=== PATIENT | female | born 1990 | race Caucasian/White ===

== ENCOUNTER 2017-04-10 06:00 | Observation (INO) | payer OTHER ==
[~2017-04-10] VITALS: Ht 160 cm; Wt 76.2 kg
[2017-04-10 07:01] VITALS: Ht 160 cm; Wt 76.2 kg
[2017-04-10 07:03] VITALS: BP 111/71; PULSE 94; RESP 18
[2017-04-10] MEDS ORDERED: LACTATED RINGER'S 1,000 ML IV SCH (07:54)
[2017-04-10] MEDS ORDERED: LACTATED RINGER'S 1,000 ML IV PRN (07:55)
[2017-04-10] MEDS ORDERED: CARBOPROST 250 MCG INJ IM PRN (08:00)
[2017-04-10] MEDS ORDERED: OXYTOCIN 30 UNITS/LR 500 ML IV PRN (08:00)
[2017-04-10] MEDS ORDERED: LIDOCAINE 1% (MPF) 30 ML INJ INJ PRN (08:00)
[2017-04-10] MEDS ORDERED: MISOPROSTOL 200 MCG TAB PR PRN (08:00)
[2017-04-10] MEDS ORDERED: METHYLERGONOVINE 0.2 MG INJ IM PRN (08:00)
--- NOTE | 2017-04-10 08:46 | PN ---
Triage Information Date/Time Apr 10, 2017 at 06:00 Reason for visit: Uterine contractions Weeks of Gestation 39w 1d /Para Objective Vital Signs Date Time Temp Pulse Resp B/P Pulse Ox O2 Delivery O2 Flow Rate FiO2 04/10/17 07:03 97.9 94 18 111/71 Room Air Heart Rate Comments reactive Contractions: 6-10 Minutes Apart Results/Medications Medications Current Medications Lactated Ringer's (Lr) 1,000 ml @ 125 mls/hr Q8H IV ; Start 04/10/17 at 07:54; Status UNV Lidocaine 30 ml 30 ml ONCE PRN INJ EPISIOTOMY/TEARING; Start 04/10/17 at 08:00; Status UNV Lactated Ringer's 1,000 ml @ 2,000 mls/hr Q30M PRN IV PRE-EPIDURAL BOLUS; Start 04/10/17 at 07:55; Status UNV Oxytocin/Lactated Ringer's 500 ml @ 0 mls/hr ONCE PRN IV For Hemorrhage Management; Start 04/10/17 at 08:00; Status UNV Methylergonovine Maleate (Methergine) 0.2 mg ONCE PRN IM VAGINAL BLEEDING; Start 04/10/17 at 08:00; Status UNV Carboprost Tromethamine (Hemabate) 250 mcg ONCE PRN IM VAGINAL BLEEDING; Start 04/10/17 at 08:00; Status UNV Misoprostol (Cytotec) 1,000 mcg ONCE PRN ME VAGINAL BLEEDING; Start 04/10/17 at 08:00; Status UNV Disposition: Discharge Assessment/Plan 27 y/o at 39w 1d not in active labor -discharge home with labor precautions -f/u with OB JEFF MALCOLM Apr 10, 2017 08:46
== END 2017-04-10 08:45 | disposition home or self-care (01) ==
LOC: L-D 06:00 → INTOOBSV 06:00
PROVIDERS: ADMIT Obstetrics & Gynecology; ATTEND Obstetrics & Gynecology
DX: O62.9 Abnormality of forces of labor, unspecified (principal); Z3A.39 39 weeks gestation of pregnancy
CPT/HCPCS: Z7500 ×2; 99217; G0378

== ENCOUNTER 2017-04-20 04:25 | Inpatient (IN) | payer OTHER ==
[~2017-04-20] VITALS: Ht 160 cm; Wt 78.9 kg
[2017-04-20] MEDS ORDERED: PREN1TAB79 PO (05:13)
[2017-04-20] MEDS ORDERED: FOLI0.8C PO (05:13)
[2017-04-20] MEDS ORDERED: FERR325T5 PO (05:13)
[2017-04-20 05:14] VITALS: Ht 160 cm; Wt 78.9 kg
[2017-04-20 05:17] VITALS: BP 120/77; PULSE 94; RESP 20
[2017-04-20] MEDS ORDERED: BUTORPHANOL 2 MG INJ IV PRN (05:30)
[2017-04-20] MEDS ORDERED: CARBOPROST 250 MCG INJ IM PRN ×2 (05:30→22:00)
[2017-04-20] MEDS ORDERED: MISOPROSTOL 200 MCG TAB PR PRN ×2 (05:30→22:00)
[2017-04-20] MEDS ORDERED: IBUPROFEN 600 MG TAB PO PRN (05:30)
[2017-04-20] MEDS ORDERED: OXYTOCIN 30 UNITS/LR 500 ML IV SCH ×3 (05:30→09:15)
[2017-04-20] MEDS ORDERED: OXYTOCIN 30 UNITS/LR 500 ML IV PRN ×2 (05:30→22:00)
[2017-04-20] MEDS ORDERED: LACTATED RINGER'S 1,000 ML IV PRN (05:30)
[2017-04-20] MEDS ORDERED: LIDOCAINE 1% (MPF) 30 ML INJ INJ PRN (05:30)
[2017-04-20] MEDS ORDERED: METHYLERGONOVINE 0.2 MG INJ IM PRN ×2 (05:30→22:00)
[2017-04-20] MEDS: LACTATED RINGER'S 1,000 ML IV SCH ×3 (05:33→19:34)
[2017-04-20 06:32] LABS: BASOPHILS % 0.5 % (0.0-2.0); EOSINOPHILS # 0.1 10^3/ul (0.0-0.5); EOSINOPHILS % 0.9 % (0.0-7.0); LYMPHOCYTES # 1.1 10^3/ul (0.8-2.9); LYMPHOCYTES % 13.3 % (15.0-51.0); MEAN CORPUSCULAR HEMOGLOBIN 28.4 pg (29.0-33.0); MEAN CORPUSCULAR HGB CONC 32.4 g/dl (32.0-37.0); MEAN CORPUSCULAR VOLUME 87.7 fl (82.0-101.0); MEAN PLATELET VOLUME 12.6 fl (7.4-10.4); MONOCYTE # 0.6 10^3/ul (0.3-0.9); MONOCYTES % 7.4 % (0.0-11.0); NEUTROPHIL # 6.2 10^3/ul (1.6-7.5); NEUTROPHILS % 77.3 % (39.0-77.0); PLATELET COUNT 144 10^3/UL (140-415); RED BLOOD COUNT 4.22 10^6/ul (4.20-5.40); RED CELL DISTRIBUTION WIDTH 13.5 % (11.5-14.5)
[2017-04-20 07:01] LABS: INR 0.95; PARTIAL THROMBOPLASTIN TIME 24.7 Sec (25.0-35.0); PROTIME 12.7 Sec (12.2-14.2)
--- NOTE | 2017-04-20 07:30 | TRIAGE ---
OB Triage Datetime Report Generated by CPN: 04/20/2017 07:29 Datetime: 04/20/2017 07:28 Assessment Type: Ongoing Assessment Maternal Assessment Level of Consciousness: Fully Conscious DTR's/Clonus: DTRs 2+; No Clonus Headache: Denies Blurred Vision: No Respiratory Effort: Unlabored; Regular Rhythm; Equal Expansion Breath Sounds, Left: Clear and Equal Breath Sounds, Right: Clear and Equal Nausea/Vomiting: Denies RUQ Epigastric Pain: Denies Lower Extremities Edema: Bilateral Lower Extremities Degree: 1+ Upper Extremities Edema: None Degree: None Facial Edema: None Fall Risk Assessment History of Falling: (0) No Secondary Diagnosis: (0) No Ambulatory Aid: (0) Bedrest/Nurse Assist IV Therapy: (0) No Gait: (0) Normal/Bedrest/Immobile Mental Status: (0) Oriented to Own Ability Fall Score: 0 Fall Risk Score Definition: No Risk: No action required Datetime: 04/20/2017 07:00 Labor Evaluation Frequency: 3-7 Monitor Mode: External Duration (sec)2399: 60-100 Quality: Moderate Pattern: Normal: <= 5 Contractions in 10 Minutes Resting Tone [place]: Relaxed Heart Rate FHR Baseline Rate: 135 Monitor Mode: External US Variability: Moderate 6-25 bpm Accelerations: 15X15 Decelerations: None Category: Category I Datetime: 04/20/2017 06:30 Labor Evaluation Frequency: 3-6 Monitor Mode: External Duration (sec)2399: 50-90 Quality: Moderate Pattern: Normal: <= 5 Contractions in 10 Minutes Resting Tone [place]: Relaxed Heart Rate FHR Baseline Rate: 135 Monitor Mode: External US Variability: Moderate 6-25 bpm Accelerations: 15X15 Decelerations: None Category: Category I Datetime: 04/20/2017 05:43 Assessment Type: Admission Assessment Vaginal Bleeding: Normal Show Maternal Assessment Level of Consciousness: Fully Conscious DTR's/Clonus: DTRs 2+ Headache: Denies Blurred Vision: No Respiratory Effort: Unlabored Breath Sounds, Left: Clear and Equal Breath Sounds, Right: Clear and Equal Nausea/Vomiting: Denies RUQ Epigastric Pain: Denies Lower Extremities Edema: None Degree: None Upper Extremities Edema: None Fall Risk Assessment History of Falling: (0) No Secondary Diagnosis: (0) No Ambulatory Aid: (0) Bedrest/Nurse Assist IV Therapy: (0) No Gait: (0) Normal/Bedrest/Immobile Mental Status: (0) Oriented to Own Ability Fall Score: 0 Fall Risk Score Definition: No Risk: No action required Labor Evaluation Frequency: 4-5 Duration (sec)2399: 50-90 Quality: Moderate Pattern: Normal: <= 5 Contractions in 10 Minutes Resting Tone [place]: Relaxed Heart Rate FHR Baseline Rate: 140 Variability: Moderate 6-25 bpm Accelerations: 15X15 Decelerations: None Category: Category I Pain Presence: None/Denies Pain Type: N/A Membrane Status: Intact Datetime: 04/20/2017 05:42 Time of Arrival: 04/20/2017 05:30 EGA: 40.4 Arrived By: Ambulatory Chief Complaint: UCs q5-7mins Movement: Present Contractions: Regular Time Contractions Began: 04/20/2017 01:00 Contractions: q5-7mins Rupture of Membranes: Denies Vaginal Bleeding: None Vaginal Discharge: Denies Abdominal Trauma: Not Applicable Patient Complaints: Contractions; Cramping; Back Pain Additional Patient Complaints: Pt was admitted 04/10 for IOL for hx rapid delivery. Pt went home du e to no cervical change. Time Provider Notified: 04/20/2017 05:02 Provider Notified: Initial Plan: EFM x2, VE Datetime: 04/20/2017 05:17 Stage of : OB Triage Labor Evaluation Frequency: 2-6 Monitor Mode: External Duration (sec)2399: 60-100 Quality: Moderate Pattern: Normal: <= 5 Contractions in 10 Minutes Resting Tone [place]: Relaxed Heart Rate FHR Baseline Rate: 145 Monitor Mode: External US Variability: Moderate 6-25 bpm Accelerations: 15X15 Decelerations: None Category: Category I Datetime: 04/20/2017 05:02 Stage of : OB Triage Datetime: 04/20/2017 04:59 Stage of : OB Triage Datetime: 04/20/2017 04:57 Vaginal Exam Dilatation (cms): 3.0 Effacement (%): 60 Station: -3 Exam By: LUPE Marmolejo Vaginal Bleeding: None Cervix, Consistency: Moderate Cervix, Position: Posterior Datetime: 04/20/2017 04:36 Stage of : OB Triage Assessment Type: Triage Maternal Assessment Level of Consciousness: Fully Conscious DTR's/Clonus: DTRs 2+; No Clonus Headache: Denies Blurred Vision: No Respiratory Effort: Unlabored; Regular Rhythm; Equal Expansion Breath Sounds, Left: Clear and Equal Breath Sounds, Right: Clear and Equal Nausea/Vomiting: Denies RUQ Epigastric Pain: Denies Lower Extremities Edema: None Degree: None Upper Extremities Edema: None Degree: None Facial Edema: None Temperature Route: Oral Fall Risk Assessment History of Falling: (0) No Secondary Diagnosis: (0) No Ambulatory Aid: (0) Bedrest/Nurse Assist IV Therapy: (0) No Gait: (0) Normal/Bedrest/Immobile Mental Status: (0) Oriented to Own Ability Fall Score: 0 Fall Risk Score Definition: No Risk: No action required Pain Assessment Pain Scale: 2 Pain Presence: Intermittent Pain Type: Cramping; Contraction Pain Location: Abdomen; Back Pain Relief Measures: Comfort Measures Datetime: 04/10/2017 08:02 Labor Evaluation Frequency: 3-5 Duration (sec)2399: 60-100 Heart Rate FHR Baseline Rate: 145 Monitor Mode: External US FHR Baseline Changes: No Baseline Change Variability: Moderate 6-25 bpm Accelerations: 15X15 Decelerations: None Category: Category I Pain Presence: None/Denies Vaginal Exam Dilatation (cms): 0.5 Effacement (%): 50 Station: -3 Datetime: 04/10/2017 07:44 Assessment Type: Ongoing Assessment Maternal Assessment Level of Consciousness: Fully Conscious DTR's/Clonus: DTRs 2+; No Clonus Headache: Denies Blurred Vision: No Respiratory Effort: Unlabored; Regular Rhythm; Equal Expansion Breath Sounds, Left: Clear and Equal Breath Sounds, Right: Clear and Equal Nausea/Vomiting: Denies RUQ Epigastric Pain: Denies Lower Extremities Edema: None Degree: None Upper Extremities Edema: None Degree: None Facial Edema: None Fall Risk Assessment History of Falling: (0) No Secondary Diagnosis: (0) No Ambulatory Aid: (0) Bedrest/Nurse Assist IV Therapy: (0) No Gait: (0) Normal/Bedrest/Immobile Mental Status: (0) Oriented to Own Ability Fall Score: 0 Fall Risk Score Definition: No Risk: No action required Labor Evaluation Frequency: OCC Monitor Mode: External Quality: Mild Pattern: Normal: <= 5 Contractions in 10 Minutes Resting Tone [place]: Relaxed Heart Rate FHR Baseline Rate: 145 Monitor Mode: External US FHR Baseline Changes: No Baseline Change Variability: Moderate 6-25 bpm Accelerations: 15X15 Decelerations: None Category: Category I Pain Presence: None/Denies Datetime: 04/10/2017 06:59 Membrane Status: Intact Datetime: 04/10/2017 06:52 Assessment Type: Admission Assessment Vaginal Bleeding: None Maternal Assessment Level of Consciousness: Fully Conscious DTR's/Clonus: DTRs 2+; No Clonus Headache: Denies Blurred Vision: No Respiratory Effort: Unlabored; Regular Rhythm; Equal Expansion Breath Sounds, Left: Clear and Equal Breath Sounds, Right: Clear and Equal Nausea/Vomiting: Denies RUQ Epigastric Pain: Denies Lower Extremities Edema: None Degree: None Upper Extremities Edema: None Degree: None Facial Edema: None Fall Risk Assessment History of Falling: (0) No Secondary Diagnosis: (0) No Ambulatory Aid: (0) Bedrest/Nurse Assist IV Therapy: (0) No Gait: (0) Normal/Bedrest/Immobile Mental Status: (0) Oriented to Own Ability Fall Score: 0 Fall Risk Score Definition: No Risk: No action required Labor Evaluation Frequency: 3-8 Monitor Mode: External Quality: Mild Pattern: Normal: <= 5 Contractions in 10 Minutes Resting Tone [place]: Relaxed Heart Rate FHR Baseline Rate: 145 Monitor Mode: External US Variability: Moderate 6-25 bpm Accelerations: Prolonged Decelerations: None Pain Assessment Pain Scale: 0 Pain Presence: None/Denies Pain Type: N/A Vaginal Exam Dilatation (cms): 1.0 Effacement (%): 50 Station: -2 Membrane Status: Intact Datetime: 04/10/2017 06:46 Time of Arrival: 04/10/2017 06:05 EGA: 39.1 Arrived By: Ambulatory Arrived From: Home
--- NOTE | 2017-04-20 21:44 | HP ---
Date/Time of Note Date/Time of Note DATE: 04/20/17 TIME: 21:39 OB - History Hx of Present Free Text/Dictation history of fast labors Last Menstrual Period: Jun 21, 2017 Estimated Due Date: Apr 19, 2017 : 3 Para: 2 Care: Good Care Ultrasounds: Normal mid trimester US Obstetrical Complications: None Medical Complications: None Past Family/Social History * Past Medical, Surgical, Family and Obstetric Histories reviewed from chart. Blood Type: O+ Rubella: immune RPR/VDRL: Negative GBS Status: Negative HBsAG: Negative OB Admission Exam Vital Signs Vital Signs Vital Signs Date Time Temp Pulse Resp B/P Pulse Ox O2 Delivery O2 Flow Rate FiO2 04/20/17 05:17 98.2 94 20 120/77 Room Air Physical Exam HEENT: WNL Heart: Rhythm Normal Lungs: Clear, Equal Abdomen: WNL Extremities: Normal Reflexes: Normal Cervical Dilatation: 3cm Effacement: 50% Station: -2 Membranes: Intact Accelerations: Accelerations Present Varibility: Moderate Contractions on Admission: 6-10 Minutes Apart Last 72 hours Lab Results CBC & BMP 04/20/17 05:25 OB Assessment/Plan Reason for admission: induction of labor Other Assessment: admitted for vaginal delivery Plan: Induction JHONNY AYOUB MD Apr 20, 2017 21:44
--- NOTE | 2017-04-20 21:47 | LDN ---
Date/Time of Note Date/Time of Note DATE: 04/20/17 TIME: 21:44 Delivery Summary induction of labor with pitocin spontaneous vaginal delivery baby boy 9. no lacerations Weeks of Gestation 40.4 Placenta Delivered: Spontaneously Meconium: none Episiotomy: No Estimated blood loss: 300 Sponge & Needle done & correct: Yes All needle counts correct: Yes Any foreign bodies felt in the: No Problems: Infant Delivery Information Sex Infant Sex: male Apgars 1 Minute: 9 5 Minute: 9 Suctioning Nose & mouth suctioned at [place]: Yes Delee suction performed: No Umbilical Cord Umbilical cord with: 3 Vessels Cord presentations: no nuchal cord Cord Blood was obtained: Yes Mother & Baby Disposition Disposition Mom & Baby to Maternity; Good: Yes JHONNY AYOUB MD Apr 20, 2017 21:47
[2017-04-20] MEDS: OXYTOCIN 30 UNITS/LR 500 ML IV SCH (21:58)
[2017-04-20] MEDS ORDERED: HYDROCODONE/APAP (5/325) TAB PO PRN ×2 (22:00)
[2017-04-20] MEDS ORDERED: DIBUCAINE 1% 30 GM OINT PR PRN (22:00)
[2017-04-20] MEDS ORDERED: OXYCODONE/ASPIRIN (4.88/325) TAB PO ONE ×2 (22:00)
[2017-04-20] MEDS ORDERED: ONDANSETRON 4 MG INJ IV PRN (22:00)
[2017-04-20] MEDS ORDERED: ACETAMINOPHEN 325 MG TAB PO PRN ×2 (22:00)
[2017-04-20] MEDS ORDERED: DIPHENHYDRAMINE 25 MG CAP PO PRN (22:00)
[2017-04-20] MEDS ORDERED: LANOLIN 7 GM TUBE TOP PRN (22:00)
[2017-04-20 23:15] VITALS: BP 118/74; PULSE 102; RESP 18
[2017-04-21] MEDS: IBUPROFEN 800 MG TAB PO SCH ×5 (00:21→23:53)
[2017-04-21] MEDS: OXYTOCIN 30 UNITS/LR 500 ML IV SCH (01:47)
[2017-04-21 04:00] VITALS: BP 97/52; PULSE 103; RESP 18
[2017-04-21 08:30] VITALS: BP 109/74; PULSE 75; RESP 18
[2017-04-21] MEDS ORDERED: INFLUENZA VIRUS VACCINE 0.5 ML (DISPENSING) IM* ONE (09:00)
[2017-04-21 09:13] LABS: BASOPHILS % 0.2 % (0.0-2.0); EOSINOPHILS % 0.4 % (0.0-7.0); HEMOGLOBIN 11.2 g/dl (12.0-16.0); LYMPHOCYTES # 1.6 10^3/ul (0.8-2.9); LYMPHOCYTES % 16.4 % (15.0-51.0); MEAN CORPUSCULAR HGB CONC 32.9 g/dl (32.0-37.0); MEAN CORPUSCULAR VOLUME 88.1 fl (82.0-101.0); MONOCYTE # 1.1 10^3/ul (0.3-0.9); MONOCYTES % 10.7 % (0.0-11.0); NEUTROPHIL # 7.2 10^3/ul (1.6-7.5); NEUTROPHILS % 71.8 % (39.0-77.0); PLATELET COUNT 133 10^3/UL (140-415); RED BLOOD COUNT 3.86 10^6/ul (4.20-5.40); RED CELL DISTRIBUTION WIDTH 13.4 % (11.5-14.5)
[2017-04-21] MEDS: SENNA/DOCUSATE NA (8.6MG/50MG) TAB PO SCH ×2 (09:43→20:55)
--- NOTE | 2017-04-21 12:19 | PN ---
Date/Time of Note Date/Time of Note DATE: 04/21/17 TIME: 12:17 OB Subjective Subjective Subjective feels good , no problems. uterus contracted. lochia normal breast feeding OB Objective HEENT: WNL Heart: Rhythm Normal Lungs: Clear, Equal Abdomen: WNL Extremities: Normal Reflexes: Normal JHONNY AYOUB MD Apr 21, 2017 12:19
[2017-04-21 16:00] VITALS: BP 106/61; PULSE 92; RESP 18
[2017-04-21 19:40] VITALS: BP 120/82; PULSE 98; RESP 20
[2017-04-22 05:11] VITALS: BP 93/54; PULSE 84; RESP 18
[2017-04-22] MEDS: IBUPROFEN 800 MG TAB PO SCH ×2 (06:00→12:08)
[2017-04-22 08:00] VITALS: BP 112/68; PULSE 76; RESP 18
[2017-04-22] MEDS ORDERED: DIPHTH/TET/ACEL PERTUSS (ADULT) 0.5 ML VIAL IM* ONE (09:00)
[2017-04-22] MEDS ORDERED: VARICELLA VACCINE LIVE/PF 1,350 UNIT/0.5 ML ML SC* ONE (09:00)
[2017-04-22] MEDS: SENNA/DOCUSATE NA (8.6MG/50MG) TAB PO SCH (09:45)
--- NOTE | 2017-04-22 10:20 | PN ---
Date/Time of Note Date/Time of Note DATE: 04/22/17 TIME: 10:15 OB Subjective Subjective Subjective April 22, 2017 day 2 Doing Well Afebrile Ambulatory Chest Clear Breasts are soft , Nipples are intact Abdomen is soft Fundus is firm Moderate amount of lochia No calf tenderness No ankle edema Current Medications Medications (Trade) Dose Ordered Sig/Steffi Route PRN Reason Start Time Stop Time Status Last Admin Dose Admin Lactated Ringer's (Lr) 1,000 ml @ 125 mls/hr Q8H IV 04/20/17 05:18 04/20/17 21:50 DC 04/20/17 19:34 Butorphanol Tartrate (Stadol) 2 mg Q2H PRN IV PAIN 04/20/17 05:30 04/20/17 21:50 DC Lidocaine 30 ml 30 ml ONCE PRN INJ EPISIOTOMY/TEARING 04/20/17 05:30 04/20/17 21:50 DC Oxytocin/Lactated Ringer's 500 ml @ 125 mls/hr ONCE -MAY REPEAT X1 IV 04/20/17 05:30 04/20/17 21:50 DC Oxytocin/Lactated Ringer's 500 ml @ 125 mls/hr ONCE IV 04/20/17 05:30 04/20/17 21:50 DC Ibuprofen 600 mg 600 mg ONCE PRN PO Mild Pain (Pain Score 1-3) 04/20/17 05:30 04/20/17 21:51 DC Lactated Ringer's 1,000 ml @ 2,000 mls/hr Q30M PRN IV PRE-EPIDURAL BOLUS 04/20/17 05:30 04/20/17 21:51 DC Oxytocin/Lactated Ringer's 500 ml @ 0 mls/hr ONCE PRN IV For Hemorrhage Management 04/20/17 05:30 04/20/17 21:51 DC Methylergonovine Maleate (Methergine) 0.2 mg ONCE PRN IM VAGINAL BLEEDING 04/20/17 05:30 04/20/17 21:51 DC Carboprost Tromethamine (Hemabate) 250 mcg ONCE PRN IM VAGINAL BLEEDING 04/20/17 05:30 04/20/17 21:51 DC Misoprostol 1000 mcg 1,000 mcg ONCE PRN SD VAGINAL BLEEDING 04/20/17 05:30 04/20/17 21:51 DC Oxytocin/Lactated Ringer's 500 ml @ 0 mls/hr TITRATE IV 04/20/17 09:15 04/20/17 21:51 DC 04/20/17 09:32 Oxycodone/Aspirin 2 tab 2 tab ONCE ONCE PO 04/20/17 22:00 04/20/17 22:00 DC Oxytocin/Lactated Ringer's 500 ml @ 125 mls/hr Q4H IV 04/20/17 21:47 04/21/17 05:46 DC 04/20/17 21:58 Ibuprofen (Motrin) 800 mg Q6 PO 04/21/17 00:00 04/21/17 23:53 Acetaminophen (Tylenol Tab) 650 mg Q4H PRN PO PAIN LEVEL 1-5 04/20/17 22:00 Acetaminophen/ Hydrocodone Bitart ([place] (5/325)) 1 tab Q4H PRN PO PAIN LEVEL 1-5 04/20/17 22:00 Acetaminophen/ Hydrocodone Bitart ([place] (5/325)) 2 tab Q4H PRN PO PAIN LEVEL 6-10 04/20/17 22:00 Ondansetron HCl (Zofran Inj) 4 mg Q6H PRN IV NAUSEA AND/OR VOMITING 04/20/17 22:00 Diphenhydramine HCl (Benadryl) 25 mg Q6H PRN PO PRURITUS 04/20/17 22:00 Senna/Docusate Sodium (Senokot-S) 1 tab BID PO 04/21/17 09:00 04/22/17 09:45 Dibucaine (Nupercainal) 1 applic BEDSIDE MEDICATION PRN SD HEMORRHOID/EPISIOTMY PAIN 04/20/17 22:00 Lanolin (Ugv-T-Lpcmgs) 1 applic BEDSIDE MEDICATION PRN TOP BEDSIDE FOR DINA TO NIPPLES 04/20/17 22:00 04/21/17 00:21 Diphtheria/ Tetanus/Acell Pertussis (Adacel) 0.5 ml ONCE ONCE IM* 04/22/17 09:00 04/22/17 09:01 DC 04/22/17 09:46 Varicella Virus Vaccine Live (Varivax Vaccine With Diluent) 1,350 unit ONCE ONCE SC* 04/22/17 09:00 04/22/17 09:01 DC Acetaminophen 650 mg 650 mg Q4H PRN PO ELEVATED TEMPERATURE 04/20/17 22:00 Oxytocin/Lactated Ringer's 500 ml @ 0 mls/hr ONCE PRN IV For Hemorrhage Management 04/20/17 22:00 04/21/17 06:04 DC Methylergonovine Maleate (Methergine) 0.2 mg ONCE PRN IM VAGINAL BLEEDING 04/20/17 22:00 Carboprost Tromethamine (Hemabate) 250 mcg ONCE PRN IM VAGINAL BLEEDING 04/20/17 22:00 Misoprostol (Cytotec) 1,000 mcg ONCE PRN SD VAGINAL BLEEDING 04/20/17 22:00 Oxycodone/Aspirin (Percodan) 2 tab ONCE ONCE PO 04/20/17 22:00 04/20/17 22:01 DC 04/20/17 21:59 Influenza Virus Vaccine (Fluzone) 0.5 ml ONCE ONCE IM* 04/21/17 09:00 04/21/17 09:01 DC 04/21/17 09:00 New born is doing well, Breast feeding Circumcision site is clear healing We will discharge mother and baby home to be followed in the clinic DEEPTI REAVES MD Apr 22, 2017 10:20
== END 2017-04-22 15:15 | disposition home or self-care (01) | DRG 775 ==
LOC: L-D 04:25 → OBT 04:25 → L-D 05:02 → PP1 23:17
PROVIDERS: ADMIT Obstetrics & Gynecology; ATTEND Obstetrics & Gynecology
PROC: 10E0XZZ Delivery of Products of Conception, External Approach (ICD-10-PCS; principal; 2017-04-20)
PROC: 3E0P3VZ Introduction of Hormone into Female Reproductive, Percutaneous Approach (ICD-10-PCS; 2017-04-20)
DX: O48.0 Post-term pregnancy (principal); Z37.0 Single live birth; Z3A.40 40 weeks gestation of pregnancy
CPT/HCPCS: 85025; 85610; 85730; 86592; 86900; 86901; 87340; 90686; 90715; 90716; G0463; J2590; J7120